=== PATIENT | female | born 1995 | race African-American/Black ===

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

== ENCOUNTER 2017-01-27 22:16 | Emergency (ER) | payer MEDICAID ==
[2017-01-27 23:12] LABS: ABSOLUTE EOSINOPHILS # (AUTO) 0.2 10^3/uL (0.0-0.6); ABSOLUTE LYMPHOCYTES (AUTO) 1.5 10^3/uL (0.5-4.7); ABSOLUTE MONOCYTES (AUTO) 0.8 10^3/uL (0.1-1.4); ABSOLUTE NEUT (AUTO) 5.3 10^3/uL (1.7-8.2); BASOPHILS % (AUTO) 0.2 % (0-2); EOSINOPHILS % (AUTO) 2.3 % (0-6); HEMATOCRIT 34.7 % (36.0-47.0); HEMOGLOBIN 11.1 g/dL (12.0-15.5); HGB HCT DIFFERENCE -1.4; LYMPHOCYTES % (AUTO) 19.3 % (13-45); MEAN CORPUSCULAR VOLUME 81 fl (80-97); MONOCYTES % (AUTO) 10.1 % (3-13); RED BLOOD COUNT 4.26 10^6/uL (3.72-5.28); RED CELL DISTRIBUTION WIDTH 14.3 % (11.5-14.0); SEGMENTED NEUTROPHILS % (AUTO) 68.1 % (42-78); WHITE BLOOD COUNT 7.8 10^3/uL (4.0-10.5)
--- NOTE | 2017-01-27 23:27 | ER Document Report ---
ED General - General Chief Complaint: Vaginal Bleeding Stated Complaint: POSSIBLE MISCARRIAGE Time Seen by Provider: 01/27/17 22:53 Mode of Arrival: Ambulatory Information source: Patient Notes: 21 yr old female hx of blighted ovum diagnosed 4 weeks ago presents after complaints of vaginal bleeding today. pt noted a large amount of blood felt dizzy and came in. pt denies any fevers or chills, nausea or vomiting. pt notes she has had intermittent clots for the past month but no heavy bleeding. TRAVEL OUTSIDE OF THE [place].S. IN LAST 30 DAYS: No - HPI Onset: Other Onset/Duration: Intermittent Quality of pain: No pain Severity: Mild Pain Level: Denies Associated symptoms: Other Exacerbated by: Denies Relieved by: Denies Similar symptoms previously: Yes Recently seen / treated by doctor: Yes - Related Data Allergies/Adverse Reactions: No Known Allergies Allergy (Verified 12/24/16 11:22) Past Medical History - Social History Smoking Status: Never Smoker Cigarette use (# per day): No Chew tobacco use (# tins/day): No Smoking Education Provided: No Frequency of alcohol use: Occasional Drug Abuse: None Family History: Reviewed & Not Pertinent Renal/ Medical History: Denies: Hx Peritoneal Dialysis Review of Systems - Review of Systems Notes: REVIEW OF SYSTEMS: CONSTITUTIONAL : Denies fever, chills, or sweats. Denies recent illness. EENT: Denies eye, ear, throat, or mouth pain or symptoms. Denies nasal or sinus congestion or discharge. Denies throat, tongue, or mouth swelling or difficulty swallowing. CARDIOVASCULAR: Denies chest pain. Denies palpitations or racing or irregular heart beat. Denies ankle edema. RESPIRATORY: Denies cough, cold, or chest congestion. Denies shortness of breath, difficulty breathing, or wheezing. GASTROINTESTINAL: Denies abdominal pain or distention. Denies nausea, vomiting , or diarrhea. Denies blood in vomitus, stools, or per rectum. Denies black, tarry stools. Denies constipation. GENITOURINARY: Denies difficulty urinating, painful urination, burning, frequency, blood in urine, or discharge. FEMALE GENITOURINARY: Admits to vaginal bleeding MUSCULOSKELETAL: Denies back or neck pain or stiffness. Denies joint pain or swelling. SKIN: Denies rash, lesions or sores. HEMATOLOGIC : Denies easy bruising or bleeding. LYMPHATIC: Denies swollen, enlarged glands. NEUROLOGICAL: Denies confusion or altered mental status. Denies passing out or loss of consciousness. Denies dizziness or lightheadedness. Denies headache. Denies weakness or paralysis or loss of use of either side. Denies problems with gait or speech. Denies sensory loss, numbness, or tingling. Denies seizures. PSYCHIATRIC: Denies anxiety or stress. Denies depression, suicidal ideation, or homicidal ideation. ALL OTHER SYSTEMS REVIEWED AND NEGATIVE. PHYSICAL EXAMINATION: GENERAL: Well-appearing, well-nourished and in no acute distress. HEAD: Atraumatic, normocephalic. EYES: Pupils equal round and reactive to light, extraocular movements intact, conjunctiva are normal. ENT: Nares patent, oropharynx clear without exudates. Moist mucous membranes. NECK: Normal range of motion, supple without lymphadenopathy LUNGS: Breath sounds clear to auscultation bilaterally and equal. No wheezes rales or rhonchi. HEART: Regular rate and rhythm without murmurs ABDOMEN: Soft, nontender, nondistended abdomen. No guarding, no rebound. No masses appreciated. Female : deferred Musculoskeletal: Normal range of motion, no pitting or edema. No cyanosis. NEUROLOGICAL: Cranial nerves grossly intact. Normal speech, normal gait. Normal sensory, motor exams PSYCH: Normal mood, normal affect. SKIN: Warm, Dry, normal turgor, no rashes or lesions noted. Dictation was performed using [employer] voice recognition software Physical Exam - Vital signs Vitals: Pulse Resp BP Pulse Ox 99 H 18 133/93 H 100 01/27/17 23:17 01/27/17 23:17 01/27/17 23:17 01/27/17 23:17 Course - Re-evaluation Re-evalutation: 01/27/17 23:26 Patient at this time is asymptomatic, I believe she had complete her miscarriage given the amount of blood that she noticed. Currently she is has no other concerns, lab work ultrasound are pending at this time 01/28/17 00:25 Patient's hCG has decreased significantly 01/28/17 00:58 Patient's ultrasound does note some debris, overall patient looks well is in no distress After performing a Medical Screening Examination, I estimate there is LOW risk for ACUTE APPENDICITIS, BOWEL OBSTRUCTION, ACUTE CHOLECYSTITIS, PERFORATED DIVERTICULITIS, INCARCERATED HERNIA, PANCREATITIS, PELVIC INFLAMMATORY DISEASE, PERFORATED ULCER, ECTOPIC , or TUBO-OVARIAN ABSCESS, thus I consider the discharge disposition reasonable. Also, there is no evidence or peritonitis , sepsis, or toxicity. I have reevaluated this patient multiple times and no significant life threatening changes are noted. The patient and I have discussed the diagnosis and risks, and we agree with discharging home with close follow-up with the understanding that symptoms and presentations can change. We also discussed returning to the Emergency Department immediately if new or worsening symptoms occur. We have discussed the symptoms which are most concerning (e.g., bloody stool, fever, changing or worsening pain, vomiting) that necessitate immediate return. - Vital Signs Vital signs: Temp Pulse Resp BP Pulse Ox 99 H 18 133/93 H 100 01/27/17 23:17 01/27/17 23:17 01/27/17 23:17 01/27/17 23:17 - Laboratory Result Diagrams: 01/27/17 23:00 Laboratory results interpreted by me: 01/27/17 01/27/17 01/28/17 23:00 23:00 00:15 Hgb 11.1 L Hct 34.7 L MCH 26.0 L RDW 14.3 H Beta HCG, Quant 58.37 H Urine Protein 100 H Urine Blood LARGE H Urine Urobilinogen 4.0 H Ur Leukocyte Esterase MODERATE H - Diagnostic Test Radiology reviewed: Image reviewed, Reports reviewed - Report given to Discharge - Discharge Clinical Impression: Miscarriage, Vaginal bleeding Urinary tract infection Qualifiers: Urinary tract infection type: site unspecified Hematuria presence: without hematuria Qualified Code(s): N39.0 - Urinary tract infection, site not specified Condition: Stable Disposition: HOME, SELF-CARE Instructions: Miscarriage ([facility]) Additional Instructions: Please 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
--- NOTE | 2017-01-28 00:41 | RADIOLOGY REPORT (SQ) ---
EXAM DESCRIPTION: U/S OB TRANSVAGINAL W/O DOP COMPLETED DATE/TIME: 01/28/2017 12:11 am REASON FOR STUDY: vaginal bleeding COMPARISON: US OB 12/24/2016. TECHNIQUE: Transvaginal static and realtime grayscale images acquired of the pelvis. Additional debra cted spectral and color Doppler images recorded. All images stored on PACs. [facility].37 LIMITATIONS: None. FINDINGS: UTERUS: The uterus measures 8.5 x 5.2 x 4.7 cm. The cervix is closed and measures 2.3 cm in length. No intrauterine was identified. The endometrium is thickened and heterogeneous and measure s 2.4 cm in double wall thickness. A cystic area with internal debris at the endometrium is measurin g 1.5 cm. RIGHT ADNEXA: The right ovary measures 2.7 x 2.4 x 1.9 cm. Flow by Doppler was shown to the right ov javed. No adnexal free fluid. No adnexal masses. LEFT ADNEXA: The left ovary was not visualized. No adnexal free fluid. No adnexal masses. FREE FLUID: None. IMPRESSION: No visualized intra or extrauterine , ectopic cannot be excluded. Th ickened and heterogeneous endometrium with a cystic area with internal debris. Follow-up ultrasound and serial beta HCG recommended to accurately assess status. TECHNICAL DOCUMENTATION: JOB ID: [id number] [employer]- All Rights Reserved
[2017-01-28 00:46] LABS: APPEARANCE,URINE CLOUDY; BILIRUBIN,URINE NEGATIVE (NEGATIVE); GLUCOSE, URINE NEGATIVE (NEGATIVE); KETONES,URINE NEGATIVE (NEGATIVE); LEUKOCYTE ESTERASE,URINE MODERATE (NEGATIVE); NITRITE,URINE NEGATIVE (NEGATIVE); PROTEIN,URINE 100 mg/dL (NEGATIVE); URINE SPECIFIC GRAVITY 1.029
[2017-01-28] MEDS ORDERED: IBUPROFEN 800 MG TABLET PO ONE (00:53)
[2017-01-28 01:03] VITALS: BP 128/88
== END 2017-01-28 01:10 | disposition home or self-care (01) ==
LOC: ER 22:16
DX: O03.9 Complete or unspecified spontaneous abortion without complication (principal); O03.88 Urinary tract infection following complete or unspecified spontaneous abortion
CPT/HCPCS: 99284; 86900; 86901; 36415; 84702; 85025; 81001; 76817; J3490

== ENCOUNTER 2018-02-15 22:00 | Emergency (ER) | payer SELFPAY ==
--- NOTE | 2018-02-15 22:50 | ER Document Report ---
ED ENT - General Mode of Arrival: Ambulatory Information source: Patient TRAVEL OUTSIDE OF THE U.S. IN LAST 30 DAYS: No - General Chief Complaint: Sore Throat Stated Complaint: SORE THROAT/RUNNY NOSE Time Seen by Provider: 02/15/18 22:39 Notes: 22 y.o female presents to the ED with a sore throat, cough and sinus congestion of onset today. Pt reports that she has been around sick coworkers recently. She also notes that she is having a headache. (BEATRIZ RICKETTS) - Related Data Allergies/Adverse Reactions: No Known Allergies Allergy (Verified 12/24/16 11:22) Past Medical History - General Information source: Patient - Social History Smoking Status: Unknown if Ever Smoked Family History: Reviewed & Not Pertinent Renal/ Medical History: Denies: Hx Peritoneal Dialysis Review of Systems - Review of Systems EENT: See HPI, Nose congestion, Throat pain Respiratory: See HPI, Cough Neurological/Psychological: See HPI, Headaches Physical Exam - Notes Notes: Physical Exam: General: Alert, appears well. HEENT: Normocephalic. Atraumatic. PERRL. Extraocular movements intact. Mild erythema to oropharynx, no purulence. Tonsils with mild erythema and edema but is without any exudates. No cervical lymphadenopathy. Neck: Supple. Non-tender. Respiratory: No respiratory distress. Clear and equal breath sounds bilaterally. Cardiovascular: Regular rate and rhythm. Abdominal: Normal Inspection. Non-tender. No distension. Normal Bowel Sounds. Back: Non-tender. No deformity or step off. Extremities: Moves all four extremities. Upper extremities: Normal inspection. Normal ROM. Lower extremities: Normal inspection. No edema. Normal ROM. Neurological: Normal cognition. AAOx3. Normal speech. Psychological: Normal affect. Normal Mood. Skin: Warm. Dry. Normal color. (BEATRIZ RICKETTS) Course - Re-evaluation Re-evalutation: 02/15/18 23:49 Strep test negative will provide Decadron return precautions provided will treat as viral pharyngitis (NAFISA VERA) Discharge - Discharge Clinical Impression: Acute pharyngitis Qualifiers: Pharyngitis/tonsillitis etiology: unspecified etiology Qualified Code(s): J02.9 - Acute pharyngitis, unspecified Condition: Good Disposition: HOME, SELF-CARE Instructions: Sore Throat ([facility]) Forms: Return to Work Scribe Attestation: 02/20/18 14:52 I personally performed the services described in the documentation, reviewed and edited the documentation which was dictated to the scribe in my presence, and it accurately records my words and actions. (NAFISA VERA) Scribe Documentation - Scribe Written by Bonnie:: Bonnie Dupont 02/15/18 2940 acting as scribe for :: Roman
[2018-02-15] MEDS ORDERED: DEXAMETHASONE SOD PHOS INJ 10 MG/1 ML VIAL IM ONE (23:51)
== END 2018-02-16 00:07 | disposition home or self-care (01) ==
LOC: ER 22:00
DX: J02.9 Acute pharyngitis, unspecified (principal); R05 Cough; R09.81 Nasal congestion; R51 Headache
CPT/HCPCS: 99283; 96372; 87070; 87880; J1100

== ENCOUNTER 2018-08-22 03:22 | Emergency (ER) | payer BC, MEDICAID ==
[2018-08-22 03:32] VITALS: BP 130/84
[2018-08-22] MEDS ORDERED: PENICILLIN V POTASSIUM 500 MG TABLET PO ONE (03:59)
--- NOTE | 2018-08-22 04:05 | ER Document Report ---
HPI - HPI Patient complains to provider of: Dental pain Time Seen by Provider: 08/22/18 03:59 Pain Level: 5 Context: Patient is a 23-year-old female presents to the emergency department complaining of right lower tooth pain that started today. Patient states 1 hour prior to arrival to the emergency department she did take [id number] Tylenol which is somewhat helped her pain. Patient states she is currently 28 weeks and is unsure of what other medication she can take for this dental pain. Patient states it has been "a really long time" since she has been to the dentist. Past medical history: None Medications: Allergies: None - REPRODUCTIVE Reproductive: REPORTS: : Past Medical History - General Information source: Patient - Social History Smoking Status: Unknown if Ever Smoked Family History: Reviewed & Not Pertinent Renal/ Medical History: Denies: Hx Peritoneal Dialysis Vertical Provider Document - CONSTITUTIONAL Agree With Documented VS: Yes Notes: GENERAL: Alert, interacts well. No acute distress. HEAD: Normocephalic, atraumatic. EYES: Pupils equal, round, and reactive to light. Extraocular movements intact. ENT: Oral mucosa moist, tongue midline. Dentition appear to be in relatively good repair. Tooth in question is #31, with an obvious dental carry and surrounding gum erythema, no areas of fluctuance or induration noted. No Ilan's angina noted NECK: Full range of motion. Supple. Trachea midline. No lymphadenopathy appreciated LUNGS: Clear to auscultation bilaterally, no wheezes, rales, or rhonchi. No respiratory distress. HEART: Regular rate and rhythm. No murmur ABDOMEN: Soft, non-tender. Non-distended. Bowel sounds present in all 4 quadrants. EXTREMITIES: Moves all 4 extremities spontaneously. No edema, normal radial and dorsalis pedis pulses bilaterally. No cyanosis. BACK: no cervical, thoracic, lumbar midline tenderness. No saddle anesthesia, normal distal neurovascular exam. NEUROLOGICAL: Alert and oriented x3. Normal speech. cranial nerves II through XII grossly intact PSYCH: Normal affect, normal mood. SKIN: Warm, dry, normal turgor. No rashes or lesions noted. - INFECTION CONTROL TRAVEL OUTSIDE OF THE [place].S. IN LAST 30 DAYS: No Course - Re-evaluation Re-evalutation: 08/22/18 04:02 Discussed continued use of Tylenol for generalized pain and use of antibiotics for infection. Discussed close follow-up with [facility] or [facility]. Patient voices understanding is stable for discharge. - Vital Signs Vital signs: Temp Pulse Resp BP Pulse Ox 97.8 F 88 18 130/84 H 100 08/22/18 03:28 08/22/18 03:28 08/22/18 03:28 08/22/18 03:28 08/22/18 03:28 Discharge - Discharge Clinical Impression: Pain, dental, Dental caries Condition: Stable Disposition: HOME, SELF-CARE Instructions: Toothache ([facility]), Penicillin V K ([facility]), [facility] Additional Instructions: As we discussed you have been seen and treated in the emergency department for a toothache. Please take antibiotics as prescribed. Please continue to take [id number] Tylenol every 4 hours for generalized pain. Please make an appointment with your dentist, phone numbers will be provided in this packet. Please return to the emergency room for any other concerning symptoms. [address], [address] Prescriptions: Penicillin V Potassium [Penicillin Vk 500 mg Tablet] 500 mg PO BID #20 tablet Referrals: [facility] [Provider Group] - Follow up as needed
== END 2018-08-22 03:59 | disposition home or self-care (01) ==
LOC: EDSEX 03:22 → ER 03:22
DX: O26.93 Pregnancy related conditions, unspecified, third trimester (principal); K02.9 Dental caries, unspecified; Z3A.28 28 weeks gestation of pregnancy
CPT/HCPCS: 99282

== ENCOUNTER 2018-09-16 16:56 | Outpatient (CLI) | payer BC, MEDICAID ==
[2018-09-16 17:28] LABS: APPEARANCE,URINE SLIGHTLY-CLOUDY; BILIRUBIN,URINE NEGATIVE (NEGATIVE); COLOR,URINE YELLOW; GLUCOSE, URINE NEGATIVE (NEGATIVE); KETONES,URINE NEGATIVE (NEGATIVE); LEUKOCYTE ESTERASE,URINE NEGATIVE (NEGATIVE); NITRITE,URINE NEGATIVE (NEGATIVE); PROTEIN,URINE NEGATIVE (NEGATIVE); URINE SPECIFIC GRAVITY 1.015
[2018-09-16 17:41] LABS: URINE AMPHETAMINES SCREEN NEGATIVE; URINE BARBITURATES SCREEN NEGATIVE; URINE BENZODIAZEPINES SCREEN NEGATIVE; URINE COCAINE SCREEN NEGATIVE; URINE MARIJUANA (THC) SCREEN NEGATIVE; URINE METHADONE SCREEN NEGATIVE; URINE PHENCYCLIDINE SCREEN NEGATIVE
== END 2018-09-16 18:26 | disposition home or self-care (01) ==
LOC: LC 16:56
PROVIDERS: ATTEND Obstetrics & Gynecology Gynecology
PROC: 4A1HXCZ Monitoring of Products of Conception, Cardiac Rate, External Approach (ICD-10-PCS; principal; 2018-09-16)
DX: O26.893 Other specified pregnancy related conditions, third trimester (principal); Z3A.31 31 weeks gestation of pregnancy
CPT/HCPCS: 80307; 81001

== ENCOUNTER 2018-11-12 02:46 | Outpatient (CLI) | payer BC, MEDICAID ==
[2018-11-12 03:43] LABS: APPEARANCE,URINE CLOUDY; BILIRUBIN,URINE NEGATIVE (NEGATIVE); COLOR,URINE YELLOW; GLUCOSE, URINE NEGATIVE (NEGATIVE); KETONES,URINE NEGATIVE (NEGATIVE); LEUKOCYTE ESTERASE,URINE NEGATIVE (NEGATIVE); NITRITE,URINE NEGATIVE (NEGATIVE); PROTEIN,URINE NEGATIVE (NEGATIVE); URINE SPECIFIC GRAVITY 1.012
[2018-11-12 03:59] LABS: URINE AMPHETAMINES SCREEN NEGATIVE; URINE BARBITURATES SCREEN NEGATIVE; URINE BENZODIAZEPINES SCREEN NEGATIVE; URINE COCAINE SCREEN NEGATIVE; URINE MARIJUANA (THC) SCREEN NEGATIVE; URINE METHADONE SCREEN NEGATIVE; URINE PHENCYCLIDINE SCREEN NEGATIVE
[2018-11-12] MEDS ORDERED: NALBUPHINE HCL INJ 10 MG/1 ML AMPULE ONE (04:05)
[2018-11-12] MEDS ORDERED: NALBUPHINE HCL INJ 10 MG/1 ML AMPULE IM ONE (04:30)
--- NOTE | 2018-11-12 05:41 | Non Stress Test Report ---
Non Stress Test Datetime Report Generated by CPN: 11/12/2018 05:41 DEMOGRAPHIC Test Number: 1 EGA NST: 40.0 INDICATION Indication for Study: Ordered by Provider MONITORING Monitor Explained: Monitor Explained; Test Explained; Patient Verbalized Understanding Time on Monitor: 11/12/2018 03:03 Time off Monitor: 11/12/2018 05:25 NST Duration: 142 NST INTERVENTIONS NST Interventions: PO Hydration; Reposition Patient Physician Notified NST: Marshall BABY A: [id number] BABY A Movement : Present Contraction Frequency : 1.5-3 Accelerations : 15X15 Variability : Moderate 6-25bpm NST Review: Meets Criteria for Reactive NST NST Review and Verified By : Wilder Velazquez RN NST Results: Reactive NST REPORT Report Trigger: Send Report
== END 2018-11-12 05:33 | disposition home or self-care (01) ==
LOC: LC 02:46
PROVIDERS: ATTEND Student in an Organized Health Care Education/Training Program
PROC: 4A1HXCZ Monitoring of Products of Conception, Cardiac Rate, External Approach (ICD-10-PCS; principal; 2018-11-12)
DX: O26.893 Other specified pregnancy related conditions, third trimester (principal); R10.9 Unspecified abdominal pain; M54.9 Dorsalgia, unspecified; Z3A.40 40 weeks gestation of pregnancy
CPT/HCPCS: 81005; 80307; 59025; J2300

== ENCOUNTER 2018-11-12 17:50 | Inpatient (IN) | payer BC, MEDICAID ==
[2018-11-12] MEDS ORDERED: DINOPROSTONE 10 MG VAGINAL INSERT.SR PV PRN (18:04)
[2018-11-12] MEDS ORDERED: RINGERS SOLUTION,LACTATED 300 ML IV ONE (18:04)
[2018-11-12 18:57] LABS: APPEARANCE,URINE CLOUDY; BILIRUBIN,URINE NEGATIVE (NEGATIVE); COLOR,URINE YELLOW; GLUCOSE, URINE NEGATIVE (NEGATIVE); KETONES,URINE TRACE mg/dL (NEGATIVE); LEUKOCYTE ESTERASE,URINE NEGATIVE (NEGATIVE); NITRITE,URINE NEGATIVE (NEGATIVE); PROTEIN,URINE NEGATIVE (NEGATIVE); UROBILINOGEN,URINE NEGATIVE mg/dL (<2.0)
[2018-11-12 19:15] LABS: ABSOLUTE LYMPHOCYTES (AUTO) 1.2 10^3/uL (0.5-4.7); ABSOLUTE MONOCYTES (AUTO) 0.9 10^3/uL (0.1-1.4); BASOPHILS % (AUTO) 0.1 % (0-2); EOSINOPHILS % (AUTO) 0.3 % (0-6); HEMATOCRIT 36.5 % (36.0-47.0); HEMOGLOBIN 11.7 g/dL (12.0-15.5); LYMPHOCYTES % (AUTO) 12.3 % (13-45); MEAN CORPUSCULAR HGB CONC 32.2 g/dL (32.0-36.0); MEAN CORPUSCULAR VOLUME 81 fl (80-97); MONOCYTES % (AUTO) 8.9 % (3-13); PLATELET COUNT 200 10^3/uL (150-450); RED BLOOD COUNT 4.51 10^6/uL (3.72-5.28); RED CELL DISTRIBUTION WIDTH 14.2 % (11.5-14.0); SEGMENTED NEUTROPHILS % (AUTO) 78.4 % (42-78); TOTAL CELLS COUNTED % (AUTO) 100 %; WHITE BLOOD COUNT 10.2 10^3/uL (4.0-10.5)
[2018-11-12 19:21] LABS: URINE AMPHETAMINES SCREEN NEGATIVE; URINE BARBITURATES SCREEN NEGATIVE; URINE BENZODIAZEPINES SCREEN NEGATIVE; URINE COCAINE SCREEN NEGATIVE; URINE MARIJUANA (THC) SCREEN NEGATIVE; URINE METHADONE SCREEN NEGATIVE; URINE PHENCYCLIDINE SCREEN NEGATIVE
--- NOTE | 2018-11-12 19:48 | RADIOLOGY REPORT (SQ) ---
EXAM DESCRIPTION: U/S RETROPERITON (RENAL/AORTA) COMPLETED DATE/TIME: 11/12/2018 7:40 pm REASON FOR STUDY: right flank pain COMPARISON: None. TECHNIQUE: Dynamic and static grayscale images acquired of the kidneys and bladder and recorded on P ACS. Additional selected color Doppler and spectral images recorded. LIMITATIONS: None. FINDINGS: RIGHT KIDNEY: Normal size. Normal echogenicity. No solid or suspicious masses. Mild -moder ate right hydronephrosis.. No calcifications. LEFT KIDNEY: Normal size. Normal echogenicity. No solid or suspicious masses. No hydronephrosis. No calcifications. BLADDER: Decompressed. OTHER FINDINGS: Term noted. IMPRESSION: Mild -moderate right hydronephrosis. TECHNICAL DOCUMENTATION: JOB ID: [id number] [employer]- All Rights Reserved Reading location - IP/workstation name: [email or web address]
[2018-11-12] MEDS ORDERED: NALBUPHINE HCL INJ 10 MG/1 ML AMPULE ONE (19:57)
[2018-11-12] MEDS ORDERED: PROMETHAZINE HCL INJ 25 MG/1 ML VIAL ONE (19:57)
[2018-11-12] MEDS ORDERED: DINOPROSTONE 10 MG VAGINAL INSERT.SR ONE (20:01)
[2018-11-12] MEDS ORDERED: NALBUPHINE HCL INJ 10 MG/1 ML AMPULE INJ ONE (20:30)
[2018-11-12] MEDS ORDERED: PROMETHAZINE HCL INJ 25 MG/1 ML VIAL IV ONE (20:50)
[2018-11-12] MEDS ORDERED: ZOLPIDEM TARTRATE 5 MG TABLET ONE (21:33)
[2018-11-12] MEDS ORDERED: MAG HYDROX/AL HYDROX/SIMETH SUSP 30 ML UDCUP ONE (21:33)
[2018-11-12] MEDS ORDERED: MAG HYDROX/AL HYDROX/SIMETH SUSP 30 ML UDCUP PO ONE (21:36)
[2018-11-12] MEDS: ZOLPIDEM TARTRATE 5 MG TABLET PO SCH (21:38)
[2018-11-12] MEDS ORDERED: MISOPROSTOL 0.2 MG TABLET ONE (21:50)
[2018-11-12] MEDS ORDERED: LIDOCAINE 1% INJ-PF (10 MG/ML) 30 ML SDV ONE (21:50)
[2018-11-12] MEDS ORDERED: OXYTOCIN 10 UNIT/ML VIAL ONE (21:50)
[2018-11-12] MEDS ORDERED: OXYTOCIN/NORMAL SALINE 20 UNIT/1,000 ML RTUINJ ONE (21:50)
--- NOTE | 2018-11-12 23:05 | Admission Physical ---
Datetime Report Generated by CPN: 11/12/2018 23:04 CURRENT ADMISSION Chief Complaint: Scheduled Induction of Labor Indication for Induction: Other Indication for Induction- Other: GDM Admit Impression : Term, Intrauterine Admit Plan: Admit to Unit; Initiate Labor Induction Protocol ALLERGIES Medication Allergies: No Medication Allergies: No Known Allergies (11/12/2018) Latex: No Latex Allergies Food Allergies: None Environmental Allergies: None OBSTETRICAL HISTORY EDC: 11/12/2018 00:00 : 4 Para: 0 Term: 0 : 0 SAB: 3 IAB: 0 Ectopic: 0 Livin Cesareans: 0 VBACs: 0 Multiple Births: 0 Gestational Diabetes: Yes Rh Sensitization: No Incompetent Cervix: No MEGHAN: No Infertility: No ART Treatment: No Uterine Anomaly: No IUGR: No Hx Previous C/S: No Macrosomia: No Hx Loss/Stillborn: No PIH: No Hx : No Placenta Previa/Abruption: No Depression/PP Depression: No PTL/PROM: No Post Hemorrhage: No Current Procedures: Ultrasound Obstetrical History Comments: 2014, EAB 2016, SAB G3- Current, GDM SEE RECORDS Alcohol: No Marijuana : No Cocaine: No Other Illicit Drugs: No Cigarettes: Never Smoker. [id number] MEDICAL HISTORY Diabetes: No Diabetes Type: Gestational Diabetes Blood Transfusion: No Pulmonary Disease (Asthma, TB): No Breast Disease: No Hypertension: No [employer] Surgery: No Heart Disease: No Hosp/Surgery: No Autoimmune Disorder: No Anesthetic Complications: No Kidney Disease: No Abnormal Pap Smear: No Neuro/Epilepsy: No Psychiatric Disorders: No Other Medical Diseases: No Hepatitis/Liver Disease: No Significant Family History: No Varicosities/Phlebitis: No Trauma/Violence : No Thyroid Dysfunction: Yes Medical History Comments: Hyperthyroidism INFECTIOUS HISTORY Gonorrhea: No Genital Herpes: No Chlamydia: No Tuberculosis: No Syphilis: No Hepatitis: No HIV/AIDS Exposure: No Rash or Viral Illness: No HPV: No PHYSICAL EXAM General: Normal HEENT: Normal Neurologic: Normal Thyroid: Normal Heart: Normal Lungs: Normal Breast: Deferred Back: Abnormal Abdomen: Normal Genitourinary Exam: Normal Extremities: Normal DTRs: Normal Pelvic Type: Adequate Physical Exam Comments: right cva pain likely from colic Vital Signs: Reviewed VAGINAL EXAM Dilatation: 1 Effacement: 50 MEMBRANES Pooling: Negative Membranes: Intact FETUS A EGA: 40.0 Monitoring: External US FHR- Baseline: 120 Variability: Minimal - Undetectable to <=5bpm Decelerations: None FHR Category: Category I Admit Comment: efw 7lbs PLANS FOR LABOR AND DELIVERY Labor and Delivery: None Pain Management: Epidural Feeding Preference: Both Benefit of Breast Feed Discussed: Yes Circumcision: Yes INFORMED CONSENT Signature: with User ID: [email or web address]
[2018-11-13] MEDS ORDERED: OXYCODONE-ACETAMINOPHEN 5-325 MG TABLET PO PRN (01:22)
[2018-11-13] MEDS ORDERED: OXYCODONE-ACETAMINOPHEN 5-325 MG TABLET ONE ×2 (01:24→08:53)
[2018-11-13] MEDS ORDERED: NALBUPHINE HCL INJ 10 MG/1 ML AMPULE ONE (09:15)
[2018-11-13] MEDS ORDERED: MISOPROSTOL 0.1 MG TABLET ONE (09:16)
[2018-11-13] MEDS ORDERED: MISOPROSTOL 0.2 MG TABLET PV ONE (09:30)
[2018-11-13] MEDS ORDERED: NALBUPHINE HCL INJ 10 MG/1 ML AMPULE IV ONE (09:31)
[2018-11-13 11:28] LABS: ABSOLUTE LYMPHOCYTES (AUTO) 0.8 10^3/uL (0.5-4.7); ABSOLUTE NEUT (AUTO) 10.1 10^3/uL (1.7-8.2); BASOPHILS % (AUTO) 0.2 % (0-2); EOSINOPHILS % (AUTO) 0.1 % (0-6); HEMATOCRIT 35.3 % (36.0-47.0); HEMOGLOBIN 11.2 g/dL (12.0-15.5); LYMPHOCYTES % (AUTO) 6.9 % (13-45); MEAN CORPUSCULAR HEMOGLOBIN 25.6 pg (27.0-33.4); MEAN CORPUSCULAR HGB CONC 31.8 g/dL (32.0-36.0); MEAN CORPUSCULAR VOLUME 81 fl (80-97); MONOCYTES % (AUTO) 8.3 % (3-13); PLATELET COUNT 213 10^3/uL (150-450); RED BLOOD COUNT 4.39 10^6/uL (3.72-5.28); RED CELL DISTRIBUTION WIDTH 14.4 % (11.5-14.0); SEGMENTED NEUTROPHILS % (AUTO) 84.5 % (42-78); TOTAL CELLS COUNTED % (AUTO) 100 %; WHITE BLOOD COUNT 11.9 10^3/uL (4.0-10.5)
[2018-11-13 11:46] LABS: APPEARANCE,URINE CLEAR; BILIRUBIN,URINE NEGATIVE (NEGATIVE); COLOR,URINE YELLOW; GLUCOSE, URINE NEGATIVE (NEGATIVE); KETONES,URINE 80 mg/dL (NEGATIVE); LEUKOCYTE ESTERASE,URINE NEGATIVE (NEGATIVE); NITRITE,URINE NEGATIVE (NEGATIVE); PROTEIN,URINE NEGATIVE (NEGATIVE); URINE SPECIFIC GRAVITY 1.013; UROBILINOGEN,URINE NEGATIVE mg/dL (<2.0)
[2018-11-13] MEDS ORDERED: OXYTOCIN/NORMAL SALINE 20 UNIT/1,000 ML RTUINJ IV PRN (12:43)
[2018-11-13] MEDS ORDERED: ACETAMINOPHEN 325 MG TABLET PO ONE (13:07)
[2018-11-13] MEDS ORDERED: CYCLOBENZAPRINE HCL 10 MG TABLET PO ONE (13:08)
[2018-11-13] MEDS ORDERED: CYCLOBENZAPRINE HCL 10 MG TABLET ONE (13:14)
[2018-11-13] MEDS ORDERED: ACETAMINOPHEN 325 MG TABLET ONE (13:15)
[2018-11-13 15:13] LABS: ALANINE AMINOTRANSFERASE 23 U/L (9-52); ALBUMIN 3.5 g/dL (3.5-5.0); ALKALINE PHOSPHATASE 220 U/L (38-126); AMYLASE 92 U/L (30-110); ANION GAP 13 (5-19); ASPARTATE AMINO TRANSFERASE 22 U/L (14-36); BILIRUBIN,DIRECT 0.8 mg/dL (0.0-0.4); BILIRUBIN,TOTAL 1.4 mg/dL (0.2-1.3); BLOOD UREA NITROGEN 8 mg/dL (7-20); CALCIUM 9.4 mg/dL (8.4-10.2); CARBON DIOXIDE 18 mmol/L (22-30); CHLORIDE 104 mmol/L (98-107); GLUCOSE 71 mg/dL (75-110); LIPASE 38.4 U/L (23-300); POTASSIUM 3.9 mmol/L (3.6-5.0); SODIUM 135.4 mmol/L (137-145); TOTAL PROTEIN 6.4 g/dL (6.3-8.2)
--- NOTE | 2018-11-13 17:08 | RADIOLOGY REPORT (SQ) ---
EXAM DESCRIPTION: U/S ABDOMEN LIMITED W/O DOP COMPLETED DATE/TIME: 11/13/2018 4:11 pm REASON FOR STUDY: eval gall bladder and appendix COMPARISON: Renal ultrasound 11/12/2018 TECHNIQUE: Dynamic and static grayscale images acquired of the abdomen and recorded on PACS. Additio nal selected color Doppler and spectral images recorded. LIMITATIONS: patient, limited acoustic window with midline bowel gas FINDINGS: PANCREAS: Not visualized LIVER: No masses. Echotexture normal. LIVER VASCULATURE: Normal directional flow of the main portal vein and hepatic veins. GALLBLADDER: No stones. Normal wall thickness. No pericholecystic fluid. ULTRASOUND-DETECTED RICO'S SIGN: Negative. INTRAHEPATIC DUCTS AND COMMON DUCT: CBD and intrahepatic ducts normal caliber. No filling defects. INFERIOR VENA CAVA: Normal flow. AORTA: No aneurysm. RIGHT KIDNEY: Right kidney is 9.4 cm in length. There is prominence of the right renal pelvis and c alices, renal pelvis measures 16 mm AP diameter which is still within normal limits for the patient's gestational status of 40 weeks PERITONEAL AND RIGHT PLEURAL SPACE: No ascites or effusions. OTHER: Appendix not visualized on exam of the right lower quadrant IMPRESSION: Right-sided hydronephrosis of , within expected limits given the patient's gest ational status 40 weeks No gallstones, gallbladder wall thickening or pericholecystic fluid Appendix not identified TECHNICAL DOCUMENTATION: JOB ID: [id number] 0007[employer]- All Rights Reserved Reading location - IP/workstation name: [email or web address]
[2018-11-13] MEDS: RINGERS SOLUTION,LACTATED 1,000 ML IV PRN ×4 (19:24→23:27)
[2018-11-13] MEDS ORDERED: FENTANYL CITRATE INJ/PF 100 MCG/2 ML AMPUL ONE (19:41)
[2018-11-13] MEDS ORDERED: PHENYLEPHRINE HCL INJ/PF 10 MG/1 ML SDV ONE (19:41)
[2018-11-13] MEDS ORDERED: FENTANYL/BUPIVACAINE/NS/PF 300 MCG/150 ML RTUINJ EPI ONE (19:42)
[2018-11-13] MEDS ORDERED: EPHEDRINE SULFATE INJ 50 MG/1 ML AMPULE ONE (19:42)
[2018-11-13] MEDS ORDERED: BUPIVACAINE HCL 0.25 % INJ/PF (2.5 MG/1 ML) 30 ML VIAL ONE (19:42)
[2018-11-14] MEDS ORDERED: PHENAZOPYRIDINE HCL 100 MG TABLET PO ONE (00:01)
[2018-11-14] MEDS ORDERED: ACETAMINOPHEN 325 MG TABLET PO ONE (00:01)
[2018-11-14] MEDS ORDERED: CYCLOBENZAPRINE HCL 10 MG TABLET PO ONE (00:01)
[2018-11-14] MEDS ORDERED: CYCLOBENZAPRINE HCL 10 MG TABLET ONE (00:05)
[2018-11-14] MEDS ORDERED: ACETAMINOPHEN 325 MG TABLET ONE (00:05)
[2018-11-14] MEDS ORDERED: PHENAZOPYRIDINE HCL 100 MG TABLET ONE (00:21)
[2018-11-14] MEDS ORDERED: DIPHENHYDRAMINE HCL 50 MG/ML VIAL IV ONE (01:54)
[2018-11-14] MEDS ORDERED: DIPHENHYDRAMINE HCL 50 MG/ML VIAL ONE (01:56)
[2018-11-14] MEDS ORDERED: LIDOCAINE 2% INJ-PF (20 MG/ML) 10 ML AMPUL ONE ×3 (03:49→11:51)
[2018-11-14] MEDS ORDERED: LIDOCAINE 2%/EPINEPHRINE INJ 20 ML VIAL ONE (03:50)
[2018-11-14] MEDS ORDERED: NALBUPHINE HCL INJ 10 MG/1 ML AMPULE INJ ONE (05:09)
[2018-11-14] MEDS ORDERED: NALBUPHINE HCL INJ 10 MG/1 ML AMPULE ONE (05:16)
[2018-11-14] MEDS ORDERED: FENTANYL/BUPIVACAINE/NS/PF 300 MCG/150 ML RTUINJ EPI ONE (06:57)
[2018-11-14] MEDS: RINGERS SOLUTION,LACTATED 1,000 ML IV PRN ×2 (07:02→15:02)
[2018-11-14] MEDS ORDERED: OXYTOCIN/NORMAL SALINE 20 UNIT/1,000 ML RTUINJ ONE ×2 (07:08→20:21)
[2018-11-14] MEDS ORDERED: LIDOCAINE 1% INJ-PF (10 MG/ML) 30 ML SDV ONE ×2 (07:08→21:52)
[2018-11-14] MEDS ORDERED: ACETAMINOPHEN 1,000 MG/100 ML RTUPB IV ONE ×2 (16:48→16:54)
[2018-11-14] MEDS ORDERED: METHYLERGONOVINE MALEATE INJ/PF 0.2 MG/1 ML AMPULE ONE (22:30)
[2018-11-14] MEDS ORDERED: MEASLES,MUMPS&RUBELLA VACC/PF 0.5 ML VIAL SUBCUT PRN (23:31)
[2018-11-14] MEDS ORDERED: DIPH/PERTUSS(ACELL)/TETANUS VAC/PF 0.5 ML SYR (>=10YO) IM PRN (23:31)
[2018-11-14] MEDS ORDERED: DIBUCAINE 1% OINTMENT 56 GM TP PRN (23:31)
[2018-11-14] MEDS ORDERED: BENZOCAINE/MENTHOL AEROSOL SPRAY 56 ML TOP PRN (23:31)
[2018-11-14] MEDS ORDERED: MISOPROSTOL 0.2 MG TABLET PR ONE (23:31)
[2018-11-14] MEDS ORDERED: DIPHENHYDRAMINE HCL 25 MG CAPSULE PO PRN (23:37)
[2018-11-14] MEDS ORDERED: HYDROCODONE/ACETAMINOPHEN 5-325 MG TABLET PO PRN (23:37)
[2018-11-14] MEDS ORDERED: ONDANSETRON HCL 8 MG TABLET PO PRN (23:38)
[2018-11-15] MEDS: ZOLPIDEM TARTRATE 5 MG TABLET PO SCH ×3 (00:38→21:55)
--- NOTE | 2018-11-15 02:46 | Delivery Summary ---
Del Sum A-C Datetime Report Generated by CPN: 11/15/2018 02:45 DELIVERY PERSONNEL DELIVERY PERSONNEL: [id number] Delivery Doctor:: Joao Sanchez MD Labor and Delivery Nurse:: Uzma Gong RN Labor and Delivery Nurse:: Nilda Almazan RN Nursery Nurse:: Franny Ngo RN Nursery Nurse:: Zeina Salazar RN MATERNAL INFORMATION Delivery Anesthesia: Epidural Medications After Delivery: Pitocin Bolus-Please Comment Meds After Delivery Comment: Pitocin 20 units/1000 mL NS bolus Maternal Complications: Maternal Fever; Prolonged Second Stage > 2 Hrs Provider Comments: Pt C_P. After 4.5hrs of pushing with significant caput, R mediolateral episiotomy cut. No delivery of head after multiple pushes. Kiwi vacuum placed as anteriorly as possible and suction applied with pushing. Kiwi appeared to slide down the head and was therefore removed. Continued pushing still did not result in delivery of the head. Episiotomy extended and head delivered with Ritgen maneuver. Anterior and posterior shoulder delivered followed by rest of body. Baby placed on mom's abdomen. Cord clamped x 2 and cut. Placenta delivered intact with 3VC. Lacerations repaired as above. LABOR SUMMARY EDC: 11/12/2018 00:00 No. Babies in Womb: 1 Attempted: No Labor Anesthesia: Epidural LABOR INFORMATION Reason for Induction- Other: Gestational diabetes Onset of Labor: 11/14/2018 08:15 Complete Dilatation: 11/14/2018 16:50 Cervical Ripening Agents: Cervidil Oxytocin: Induction Group B Beta Strep: Negative Antibiotics # of Doses: 0 Antibiotics Time of Last Dose: n/a Steroids Given: None Reason Steroids Not Administered: Not Applicable MEMBRANES Membranes Rupture Method: Artificial Rupture of Membranes: 11/13/2018 23:50 Length of Rupture (hr): 22.32 Amniotic Fluid Color: Clear Amniotic Fluid Amount: Small Amniotic Fluid Odor: Normal STAGES OF LABOR Stage 1 hr: 8 Stage 1 min: 35 Stage 2 hr: 5 Stage 2 min: 19 Stage 3 hr: 0 Stage 3 min: 16 Total Time in Labor hr: 14 Total Time in Labor min: 10 VAGINAL DELIVERY Episiotomy: Right Mediolateral Laceration #1: None Laceration Repair: Yes Laceration Repair Note: Episiotomy repaired in layers in running locked fashion with 2.0 Vicryl. Skin reapproximated with 3.0 Vicryl in subcuticular fashion. Good hemostasis. Sponge Count Correct: Yes Sharps Count Correct: Yes CSECTION DELIVERY Primary Indication: N/A Secondary Indication: N/A CSection Incidence: N/A Labor: N/A Elective: N/A CSection Incision: N/A BABY A INFORMATION Infant Delivery Date/Time: 11/14/2018 22:09 Method of Delivery: Vaginal Born in Route : No : N/A Forceps: N/A Shoulder Dystocia : No ASSISTED DELIVERY BABY A Indication for Assisted Delivery: poor maternal effory Catheter Prior to Procedure: No Station Vacuum/Forcep Apply: +3 Vacuum Number of Pulls: 4 Vacuum Number of PopOffs: 0 Reduce Pressure btwn Ctx: Yes PRESENTATION/POSITION BABY A Presentation: Cephalic Cephalic Presentation: Vertex Vertex Position: Right Occipital Anterior Breech Presentation: N/A PLACENTA INFORMATION BABY A Placenta Delivery Time : 11/14/2018 22:25 Placenta Method of Delivery: Spontaneous Placenta Status: Delivered SCORES BABY A Heart Rate 1 min: >100 bpm Resp Effort 1 min: Absent Reflex Irritability 1 min: No Response Muscle Tone 1 min: Flaccid Color 1 min: Blue/Pale Resuscitation Effort 1 min: Tactile Stimulation; Oxygen; PPV/NCPAP SCORE 1 MIN: 2 Heart Rate 5 min: >100 bpm Resp Effort 5 min: Slow, Irregular Reflex Irritability 5 min: Cough or Sneeze or Pulls Away Muscle Tone 5 min: Flaccid Color 5 min: Body [place], Extremities Blue Resuscitation Effort 5 min: Tactile Stimulation; Oxygen; PPV/NCPAP SCORE 5 MIN: 6 Heart Rate 10 min: >100 bpm Resp Effort 10 min: Good Cry Reflex Irritability 10 min: Cough or Sneeze or Pulls Away Muscle Tone 10 min: Active Motion Color 10 min: Body [place], Extremities Blue SCORE 10 MIN: 9 INFORMATION BABY A Gestational Age at Delivery: 40.2 Gestational Status: Full Term- 39- 40.6 Weeks Outcome : Liveborn Condition : Stable Infant Sex: Male IDENTIFICATION BABY A Infant Verification Date/Time: 11/14/2018 22:16 ID Band Number: [id number] Mother's Name Verified: Yes RN Verifying : Khanh Gong RN Additional Verifying Personnel: Nathan Balbuena APPLIQUE SEWER WEIGHT/LENGTH BABY A Birthweight (gm): 3224 Weight (lb): 7 Weight (oz): 2 Length (in): 21.34 Infant Length (cm): 54.20 CORD INFORMATION BABY A No. Cord Vessels: 3 Nuchal Cord : N/A Cord Blood Taken: Yes-For Eval (Mom's Blood Type - or O+) Infant Suction: Mouth; Nose ASSESSMENT BABY A Skin to Skin: No BABY B INFORMATION : N/A SIGNATURES Signature: with User ID: [email or web address] : Jean-Pierre was personally available for consultation and serving as supervising physician for the MLP.
[2018-11-15] MEDS: IBUPROFEN 800 MG TABLET PO SCH ×3 (06:33→21:54)
[2018-11-15 07:54] LABS: HEMATOCRIT 24.9 % (36.0-47.0); MEAN CORPUSCULAR HGB CONC 32.8 g/dL (32.0-36.0); MEAN CORPUSCULAR VOLUME 79 fl (80-97); PLATELET COUNT 201 10^3/uL (150-450); RED BLOOD COUNT 3.15 10^6/uL (3.72-5.28); RED CELL DISTRIBUTION WIDTH 14.1 % (11.5-14.0); WHITE BLOOD COUNT 23.8 10^3/uL (4.0-10.5)
[2018-11-15 08:10] LABS: HEMOGLOBIN 8.2 g/dL (12.0-15.5)
--- NOTE | 2018-11-15 10:19 | PDOC PROGRESS REPORT ---
Subjective-OB Progress Note for:: 11/15/18 Subjective: reports bleeding slowing, pain controlled with current meds. states back pain is still intermittent. wants thornton out Physical Exam (OB) Vital Signs: Temp Pulse Resp BP Pulse Ox 99.1 F 108 H 16 115/68 99 11/15/18 08:00 11/15/18 08:00 11/15/18 08:00 11/15/18 08:00 11/15/18 08:00 Intake & Output 11/14/18 11/15/18 11/16/18 06:59 06:59 06:59 Intake Total 506 1948 Output Total 850 Balance 506 1098 - Lochia Lochia Amount: Scant < 10 ml Lochia Color: Rubra/Red - Abdomen Description: Soft, Round Hernia Present: No Fundal Description: Firm, Midline Fundal Height: u/u - u/2 - Abdominal Distension: No distension Tenderness: Nontender - Extremities Lower extremities: Gaby's sign - neg Calf: Normal, Nontender Objective-Diagnostic Laboratory: 11/15/18 07:25 11/13/18 14:33 11/15/18 07:25 WBC 23.8 H RBC 3.15 L Hgb 8.2 L D Hct 24.9 L MCV 79 L MCH 26.0 L MCHC 32.8 RDW 14.1 H Plt Count 201 Assessment and Plan(PN) - Assessment and Plan (1) Normal vaginal delivery Is this a current diagnosis for this admission?: Yes (2) Discomfort at episiotomy site Is this a current diagnosis for this admission?: Yes (3) Encounter for induction of labor Is this a current diagnosis for this admission?: Yes (4) Gestational diabetes Is this a current diagnosis for this admission?: Yes - Time Spent with Patient Time with patient: Less than 15 minutes Medications reviewed and adjusted accordingly: Yes - Disposition Anticipated Discharge: Home Within: within 24 hours - discussed WBC count and temp with Dr meyers. labia not swollen. will d/c thornton and start unasyn for 24h.
[2018-11-15] MEDS: DOCUSATE SODIUM 100 MG CAPSULE PO SCH ×2 (10:39→18:00)
[2018-11-15] MEDS: FAMOTIDINE 20 MG TABLET PO PRN (10:39)
[2018-11-15] MEDS: SENNOSIDES/DOCUSATE 8.6-50 MG 1 EACH TABLET PO SCH (10:39)
[2018-11-15] MEDS: FERROUS SULFATE 325 MG TABLET PO SCH ×2 (10:39→18:00)
[2018-11-15] MEDS: PRENATAL VITAMIN W DHA CAPSULE PO SCH (10:39)
[2018-11-15] MEDS: AMPICILLIN SODIUM/SULBACTAM NA 3 GM in NORMAL SALINE 100 ML IV SCH ×2 (11:47→18:00)
[2018-11-15] MEDS ORDERED: AMPICILLIN SOD/SULBACTAM 3 GM VIAL IV SCH (12:00)
[2018-11-15 15:37] LABS: FREE T4 (FREE THYROXINE) 0.89 ng/dL (0.78-2.19); THYROID STIMULATING HORMONE 0.27 uIU/mL (0.47-4.68)
[2018-11-16] MEDS: IBUPROFEN 800 MG TABLET PO SCH ×3 (06:32→21:25)
[2018-11-16 06:55] LABS: ABSOLUTE EOSINOPHILS # (AUTO) 0.1 10^3/uL (0.0-0.6); ABSOLUTE LYMPHOCYTES (AUTO) 1.8 10^3/uL (0.5-4.7); ABSOLUTE MONOCYTES (AUTO) 1.4 10^3/uL (0.1-1.4); ABSOLUTE NEUT (AUTO) 15.9 10^3/uL (1.7-8.2); BASOPHILS % (AUTO) 0.2 % (0-2); EOSINOPHILS % (AUTO) 0.4 % (0-6); HEMATOCRIT 21.2 % (36.0-47.0); LYMPHOCYTES % (AUTO) 9.2 % (13-45); MEAN CORPUSCULAR HEMOGLOBIN 25.7 pg (27.0-33.4); MEAN CORPUSCULAR HGB CONC 32.1 g/dL (32.0-36.0); MEAN CORPUSCULAR VOLUME 80 fl (80-97); MONOCYTES % (AUTO) 7.4 % (3-13); PLATELET COUNT 201 10^3/uL (150-450); RED BLOOD COUNT 2.64 10^6/uL (3.72-5.28); RED CELL DISTRIBUTION WIDTH 14.3 % (11.5-14.0); SEGMENTED NEUTROPHILS % (AUTO) 82.8 % (42-78); TOTAL CELLS COUNTED % (AUTO) 100 %; WHITE BLOOD COUNT 19.2 10^3/uL (4.0-10.5)
[2018-11-16 07:11] LABS: HEMOGLOBIN 6.8 g/dL (12.0-15.5)
[2018-11-16 07:52] LABS: FREE T3 1.92 pg/mL (2.77-5.27); FREE T4 (FREE THYROXINE) 0.72 ng/dL (0.78-2.19)
[2018-11-16 08:05] LABS: THYROID STIMULATING HORMONE 1.21 uIU/mL (0.47-4.68)
[2018-11-16] MEDS ORDERED: NORMAL SALINE 250 ML IV PRN (09:24)
--- NOTE | 2018-11-16 09:27 | PDOC PROGRESS REPORT ---
Subjective-OB Progress Note for:: 11/16/18 Subjective: Pt doing okay, states she is short of breath when she gets up. Otherwise feeling okay. Discussed Hgb drop from 11 to 6 this am. She agrees to 2 Units of PRBcs. Bleeding is small, voiding well. Having difficulty . Physical Exam (OB) Vital Signs: Temp Pulse Resp BP Pulse Ox 97.9 F 92 16 117/67 100 11/16/18 07:16 11/16/18 07:16 11/16/18 07:16 11/16/18 07:16 11/16/18 07:16 Intake & Output 11/15/18 11/16/18 11/17/18 06:59 06:59 06:59 Intake Total 1948 400 Output Total 850 200 Balance 1098 200 - PIH/Pre-Eclampsia DTR's: 1 + Clonus: Negative Headache: Absent Epigastric Pain: No Visual Changes: No - Lochia Lochia Amount: Scant < 10 ml Lochia Color: Rubra/Red - Abdomen Description: Soft, Round Hernia Present: No Fundal Description: Firm, Midline Fundal Height: u/u - u/2 Objective-Diagnostic Laboratory: 11/16/18 06:24 11/13/18 14:33 11/15/18 11/16/18 11/16/18 14:37 06:24 06:24 WBC 19.2 H RBC 2.64 L Hgb 6.8 L Hct 21.2 L MCV 80 MCH 25.7 L MCHC 32.1 RDW 14.3 H Plt Count 201 Seg Neutrophils % 82.8 H Lymphocytes % 9.2 L Monocytes % 7.4 Eosinophils % 0.4 Basophils % 0.2 Absolute Neutrophils 15.9 H Absolute Lymphocytes 1.8 Absolute Monocytes 1.4 Absolute Eosinophils 0.1 Absolute Basophils 0.0 TSH 0.27 L 1.21 Free T4 0.89 0.72 L Free T3 pg/mL 1.92 L 11/13/18 11:18 Clean Catch Midstream Urine Culture - Final Mixed Urogenital Carmen Assessment and Plan(PN) - Assessment and Plan (1) Anemia due to acute blood loss Is this a current diagnosis for this admission?: Yes (2) Discomfort at episiotomy site Is this a current diagnosis for this admission?: Yes (3) Encounter for induction of labor Is this a current diagnosis for this admission?: Yes (4) Gestational diabetes Qualifiers: Gestational diabetes mellitus control: diet-controlled Is this a current diagnosis for this admission?: Yes (5) Normal vaginal delivery Is this a current diagnosis for this admission?: Yes - Time Spent with Patient Time with patient: Less than 15 minutes Medications reviewed and adjusted accordingly: Yes - Disposition Anticipated Discharge: Home Within: within 24 hours
[2018-11-16] MEDS: PRENATAL VITAMIN W DHA CAPSULE PO SCH (09:37)
[2018-11-16] MEDS: FAMOTIDINE 20 MG TABLET PO PRN (09:37)
[2018-11-16] MEDS: FERROUS SULFATE 325 MG TABLET PO SCH ×2 (09:37→18:01)
[2018-11-16] MEDS: DOCUSATE SODIUM 100 MG CAPSULE PO SCH ×2 (09:37→18:01)
[2018-11-16] MEDS: SENNOSIDES/DOCUSATE 8.6-50 MG 1 EACH TABLET PO SCH (09:37)
[2018-11-16] MEDS: ZOLPIDEM TARTRATE 5 MG TABLET PO SCH (21:26)
[2018-11-17] MEDS: IBUPROFEN 800 MG TABLET PO SCH (05:52)
[2018-11-17] MEDS: FAMOTIDINE 20 MG TABLET PO PRN (09:47)
[2018-11-17] MEDS: PRENATAL VITAMIN W DHA CAPSULE PO SCH (09:47)
[2018-11-17] MEDS: FERROUS SULFATE 325 MG TABLET PO SCH (09:47)
[2018-11-17] MEDS: DOCUSATE SODIUM 100 MG CAPSULE PO SCH (09:48)
[2018-11-17] MEDS: SENNOSIDES/DOCUSATE 8.6-50 MG 1 EACH TABLET PO SCH (09:48)
[2018-11-17 10:26] LABS: ABSOLUTE EOSINOPHILS # (AUTO) 0.4 10^3/uL (0.0-0.6); ABSOLUTE LYMPHOCYTES (AUTO) 2.2 10^3/uL (0.5-4.7); ABSOLUTE NEUT (AUTO) 13.6 10^3/uL (1.7-8.2); BASOPHILS % (AUTO) 0.2 % (0-2); EOSINOPHILS % (AUTO) 2.3 % (0-6); HEMATOCRIT 28.8 % (36.0-47.0); LYMPHOCYTES % (AUTO) 12.7 % (13-45); MEAN CORPUSCULAR HEMOGLOBIN 27.4 pg (27.0-33.4); MEAN CORPUSCULAR HGB CONC 33.5 g/dL (32.0-36.0); MEAN CORPUSCULAR VOLUME 82 fl (80-97); MONOCYTES % (AUTO) 5.8 % (3-13); PLATELET COUNT 259 10^3/uL (150-450); RED BLOOD COUNT 3.52 10^6/uL (3.72-5.28); RED CELL DISTRIBUTION WIDTH 15.2 % (11.5-14.0); TOTAL CELLS COUNTED % (AUTO) 100 %; WHITE BLOOD COUNT 17.3 10^3/uL (4.0-10.5)
[2018-11-17 10:28] LABS: HEMOGLOBIN 9.7 g/dL (12.0-15.5)
[2018-11-17 11:41] VITALS: BP 117/72
--- NOTE | 2018-11-17 11:48 | PDOC DISCHARGE SUMMARY ---
Addendum entered and electronically signed by TONY DUTTON CNM 11/20/18 08:29: Final Diagnosis Discharge Date: 11/17/18 - Final Diagnosis (1) Anemia due to acute blood loss Is this a current diagnosis for this admission?: Yes (2) Discomfort at episiotomy site Is this a current diagnosis for this admission?: Yes (3) Encounter for induction of labor Is this a current diagnosis for this admission?: Yes (4) Gestational diabetes Is this a current diagnosis for this admission?: Yes (5) Normal vaginal delivery Is this a current diagnosis for this admission?: Yes Original Note: Final Diagnosis Discharge Date: 11/17/18 - PP Day#3, s/p PPH w/ 2 units PrBC infused yesterday. Hx GDM, vacuum assisted delivery, episiotomy cut, w/ antibiotics given after delivery as well - Final Diagnosis (2) Discomfort at episiotomy site Is this a current diagnosis for this admission?: Yes (3) Encounter for induction of labor Is this a current diagnosis for this admission?: Yes (4) Gestational diabetes Is this a current diagnosis for this admission?: Yes (5) Normal vaginal delivery Is this a current diagnosis for this admission?: Yes Discharge Data - Discharge Medication Prescriptions: Ferrous Sulfate [Feosol 325 mg Tablet] 325 mg PO DAILY #30 tablet Ibuprofen [Motrin 800 mg Tablet] 800 mg PO Q8 #60 tablet Home Medications: Vit No.130/Iron/Folic [ Tablet] 1 each PO DAILY 09/16/18 Ferrous Sulfate [Feosol 325 mg Tablet] 325 mg PO DAILY #30 tablet 11/17/18 Ibuprofen [Motrin 800 mg Tablet] 800 mg PO Q8 #60 tablet 11/17/18 Reason(s) for Admission: Onset of Labor Intrapartum Procedure(s): Vacuum Extraction Complication(s): Episiotomy, Hemorrhage-Uterine Atony - Diagnosis Test Laboratory: Temp Pulse Resp BP Pulse Ox 97.5 F 85 16 117/72 100 11/17/18 11:36 11/17/18 11:36 11/17/18 11:36 11/17/18 11:36 11/17/18 11:36 11/12/18 11/12/18 11/13/18 18:00 18:41 10:43 RBC 4.51 4.39 Hgb 11.7 L 11.2 L Hct 36.5 35.3 L Urine Opiates Screen UNCONFIRMED POSITIVE 11/15/18 11/16/18 11/17/18 07:25 06:24 10:10 RBC 3.15 L 2.64 L 3.52 L Hgb 8.2 L D 6.8 L 9.7 L D Hct 24.9 L 21.2 L 28.8 L Urine Opiates Screen - Discharge information/Instructions Discharge Activity: Activity As Tolerated, No Lifting Over 10 Pounds, Pelvic Rest Discharge Diet: As Tolerated, Regular Additional Diet Instructions: increase fiber in diet, stool softener encouraged Disposition: HOME, SELF-CARE Follow up with: [facility] in: 4, Weeks
== END 2018-11-17 12:58 | disposition home or self-care (01) | DRG 807 ==
LOC: LR 17:50 → 2S 11-15 00:15
PROVIDERS: ADMIT Obstetrics & Gynecology; ATTEND Obstetrics & Gynecology
PROC: 10D07Z6 Extraction of Products of Conception, Vacuum, Via Natural or Artificial Opening (ICD-10-PCS; principal; 2018-11-14)
PROC: 0W8NXZZ Division of Female Perineum, External Approach (ICD-10-PCS; 2018-11-14)
PROC: 3E033VJ Introduction of Other Hormone into Peripheral Vein, Percutaneous Approach (ICD-10-PCS; 2018-11-14)
PROC: 10907ZC Drainage of Amniotic Fluid, Therapeutic from Products of Conception, Via Natural or Artificial Opening (ICD-10-PCS; 2018-11-14)
PROC: 3E0P7VZ Introduction of Hormone into Female Reproductive, Via Natural or Artificial Opening (ICD-10-PCS; 2018-11-14)
PROC: 4A1HX4Z Monitoring of Products of Conception, Cardiac Electrical Activity, External Approach (ICD-10-PCS; 2018-11-14)
PROC: 30233N1 Transfusion of Nonautologous Red Blood Cells into Peripheral Vein, Percutaneous Approach (ICD-10-PCS; 2018-11-16)
DX: O24.429 Gestational diabetes mellitus in childbirth, unspecified control (principal); Z37.0 Single live birth; O63.1 Prolonged second stage (of labor); E05.90 Thyrotoxicosis, unspecified without thyrotoxic crisis or storm; O99.284 Endocrine, nutritional and metabolic diseases complicating childbirth; O62.2 Other uterine inertia; Z3A.40 40 weeks gestation of pregnancy; O99.02 Anemia complicating childbirth
CPT/HCPCS: 36415; 36430; 76705; 76770; 80053; 80307; 80361; 81001; 81005; 82150; 83690; 84439; 84443; 84481; 85025; 85027; 86592; 86850; 86900; 86901; 86920; 87086; 99465; C1758; J0131; J0295; J1200; J2210; J2300; J2370; J2550; J2590; J3010; J3490; J7050; P9016

== ENCOUNTER → 2020-03-31 | Outpatient (CLI) | payer BC ==
[2020-03-31 16:08] LABS: ABSOLUTE EOSINOPHILS # (AUTO) 0.1 10^3/uL (0.0-0.6); ABSOLUTE LYMPHOCYTES (AUTO) 1.8 10^3/uL (0.5-4.7); ABSOLUTE MONOCYTES (AUTO) 0.4 10^3/uL (0.1-1.4); ABSOLUTE NEUT (AUTO) 2.3 10^3/uL (1.7-8.2); BASOPHILS % (AUTO) 0.4 % (0-2); EOSINOPHILS % (AUTO) 1.8 % (0-6); HEMATOCRIT 37.7 % (36.0-47.0); HEMOGLOBIN 12.3 g/dL (12.0-15.5); LYMPHOCYTES % (AUTO) 39.9 % (13-45); MEAN CORPUSCULAR HEMOGLOBIN 26.8 pg (27.0-33.4); MEAN CORPUSCULAR HGB CONC 32.6 g/dL (32.0-36.0); MEAN CORPUSCULAR VOLUME 82 fl (80-97); MONOCYTES % (AUTO) 8.1 % (3-13); PLATELET COUNT 303 10^3/uL (150-450); RED BLOOD COUNT 4.59 10^6/uL (3.72-5.28); RED CELL DISTRIBUTION WIDTH 14.4 % (11.5-14.0); SEGMENTED NEUTROPHILS % (AUTO) 49.8 % (42-78); TOTAL CELLS COUNTED % (AUTO) 100 %; WHITE BLOOD COUNT 4.6 10^3/uL (4.0-10.5)
[2020-03-31 16:30] LABS: ALKALINE PHOSPHATASE 71 U/L (38-126); ANION GAP 12 (5-19); ASPARTATE AMINO TRANSFERASE 22 U/L (14-36); BILIRUBIN,DIRECT 0.3 mg/dL (0.0-0.4); BILIRUBIN,TOTAL 0.7 mg/dL (0.2-1.3); BLOOD UREA NITROGEN 12 mg/dL (7-20); CALCIUM 9.5 mg/dL (8.4-10.2); CARBON DIOXIDE 26 mmol/L (22-30); CHLORIDE 102 mmol/L (98-107); CHOLESTEROL 133.93 mg/dL (0-200); GLUCOSE 79 mg/dL (75-110); POTASSIUM 4.3 mmol/L (3.6-5.0); TOTAL PROTEIN 8.2 g/dL (6.3-8.2); TRIGLYCERIDES 65 mg/dL (<150)
[2020-03-31 16:41] LABS: DIRECT LDL 77 mg/dL (<100)
[2020-03-31 16:45] LABS: FREE T3 3.23 pg/mL (2.77-5.27)
[2020-03-31 16:59] LABS: THYROID STIMULATING HORMONE 0.68 uIU/mL (0.47-4.68)
[2020-04-03 08:36] LABS: THYROTROPIN RECEPTOR AB <1.10 IU/L (0.00-1.75)
[2020-04-03 09:15] LABS: THYROID PEROXIDASE (TPO) AB 9 IU/mL (0-34)
[2020-04-03 13:50] LABS: THYROGLOBULIN AB <1.0 IU/mL (0.0-0.9)
== END ==
LOC: OD 14:40
PROVIDERS: ATTEND Physician Assistant
DX: E06.9 Thyroiditis, unspecified (principal); R01.1 Cardiac murmur, unspecified; Z86.32 Personal history of gestational diabetes
CPT/HCPCS: 36415; 80053; 80061; 83036; 83519; 84439; 84443; 84481; 85025; 86376; 86800

== ENCOUNTER → 2020-04-07 | Outpatient (CLI) | payer BC ==
--- NOTE | 2020-04-07 14:14 | WOMENS IMAGING REPORT ---
EXAM DESCRIPTION: U/S THYROID/ST TIS HEAD NECK IMAGES COMPLETED DATE/TIME: 04/07/2020 1:35 pm REASON FOR STUDY: E06.9 THYROIDITIS, UNSPECIFIED E06.9 THYROIDITIS, UNSPECIFIED COMPARISON: None. TECHNIQUE: Dynamic and static pena-scale images acquired of the thyroid gland. Selected additional c olor/power Doppler images recorded. All images stored to PACS. LIMITATIONS: None. FINDINGS: RIGHT LOBE: Normal size, 4.8 cm. Homogeneous echotexture. No cystic or solid masses. LEFT LOBE: Enlarged, 5.3 cm. Homogeneous echotexture. No cystic or solid masses. ISTHMUS: 4.5 mm. Homogeneous echotexture. No cystic or solid masses. OTHER: No other significant finding. IMPRESSION: The right lobe of the gland is enlarged. The thyroid is homogeneous. TECHNICAL DOCUMENTATION: JOB ID: [id number] 2010 [employer]- All Rights Reserved Reading location - IP/workstation name: [email or web address]
== END ==
LOC: WI 12:47
PROVIDERS: ATTEND Physician Assistant
DX: E06.9 Thyroiditis, unspecified (principal); R01.1 Cardiac murmur, unspecified; E04.9 Nontoxic goiter, unspecified
CPT/HCPCS: 76536

== ENCOUNTER → 2020-04-19 | Outpatient (CLI) | payer BC ==
--- NOTE | 2020-04-19 22:02 | XCELERA REPORT ---
[address] [address] Transthoracic Echocardiogram Report Name: CESILIA HANSEN Age: 24 yrs Gender: Female : 1995 Patient Status: Outpatient Patient Location: Study Date: 04/19/2020 08:29 AM Height: 65 in Weight: 174 lb BSA: 1.9 m2 Procedure: A complete two-dimensional transthoracic echocardiogram was performed (2D, M-mode, spectral and color flow Doppler). The study was technically adequate with some images being suboptimal in quality. Reason For Study: MURMUR Ordering Physician: MAYRA ARMSTRONG Performed By: Eva Jacques Interpretation Summary FINDINGS: LEFT VENTRICLE: LV Systolic function: LVEF is felt to be within normal limits. Best estimate is approximately LVEF is 60 to 65%. LV Diastolic Function: No diastolic dysfunction noted. Wall motion: No definite regional wall motion abnormalities are noted. Left ventricular chamber size: is within normal limit. Left ventricular wall thickness: wnl. RIGHT VENTRICLE: RV systolic function: is felt to be within normal limit. Right Ventricle Size: is within normal limits. LEFT ATRIUM size: is within normal limit. RIGHT ATRIUM size: is within normal limit. INTER ATRIAL SEPTUM: No definite atrial septal defect noted however a small PFO could be missed. AORTIC ROOT: seems to be within normal limits. ASCENDING AORTA: is not well visualized. INFERIOR VENA CAVA: was not well visualized. VALVES: MITRAL VALVE: Leaflets are mildly thickened. Mobility seems to be within normal limits. Mitral Regurgitation: Trace mitral regurgitation is noted. Mitral Stenosis: No mitral stenosis noted. Mitral valve prolapse: none noted. AORTIC VALVE: seems to be trileaflet with mild thickening but adequate excursion. Aortic stenosis: No aortic stenosis noted. Aortic regurgitation: No aortic incompetence noted. TRICUSPID VALVE: mobility and structures within normal limit. Tricuspid stenosis: no tricuspid stenosis noted. Tricuspid regurgitation: Trace tricuspid regurgitation noted. Estimated RVSP: upper limit of normal. PULMONARY VALVE: was not well visualized but no significant abnormalities suspected. Pulmonary stenosis: no pulmonary stenosis noted. Pulmonary regurgitation: no significant pulmonary regurgitation noted. MASSES AND THROMBUS: No definite intracardiac thrombus or masses are noted. PERICARDIUM: No pericardial effusion was noted. IMPRESSION: 1. Normal LVEF. 2. Normal chamber sizes noted. No LVH noted. 3. No Diastolic Dysfunction noted. 4. No significant valvular stenosis or regurgitation noted. MMode/2D Measurements & Calculations RVDd: 2.4 cm LVIDd: 4.3 cm FS: 33.6 % Ao root diam: 2.3 cm IVSd: 0.93 cm LVIDs: 2.9 cm EDV(Teich): 83.1 ml Ao root area: 4.1 cm2 LVPWd: 0.94 cm ESV(Teich): 31.0 ml LA dimension: 3.0 cm EF(Teich): 62.7 % Doppler Measurements & Calculations MV E max abeba: MV P1/2t max abeba: Ao V2 max: LV V1 max P.2 cm/sec 69.9 cm/sec 107.4 cm/sec 3.2 mmHg MV A max abeba: MV P1/2t: 79.8 msec Ao max PG: LV V1 max: 30.9 cm/sec MVA(P1/2t): 2.8 cm2 4.6 mmHg 89.5 cm/sec MV E/A: 2.2 MV dec slope: 256.7 cm/sec2 MV dec time: 0.27 sec PA V2 max: PI end-d abeba: TR max abeba: MV P1/2t-pr_phl: 80.5 cm/sec 105.3 cm/sec 200.7 cm/sec 79.8 msec PA max PG: TR max P.6 mmHg 16.1 mmHg : MAYRA ARMSTRONG Shyamal
== END ==
LOC: SP 07:48
PROVIDERS: ATTEND Physician Assistant
DX: E06.9 Thyroiditis, unspecified (principal); R01.1 Cardiac murmur, unspecified
CPT/HCPCS: 93306